=== PATIENT | female | born 1950 | race Caucasian/White ===

== ENCOUNTER 2017-12-29 14:17 | Emergency (ER) | payer MEDICARE, OTHER ==
[~2017-12-29] VITALS: Ht 170.2 cm; Wt 61.2 kg
[~2017-12-29 14:17] MED LIST: ACET325 PO; ARIP10 PO; ASCO500 PO; Acidophilus La100 GM PO; CALCAVITD PO; CHOL10002 PO; CLON1 PO; FISH1000 PO; FLUO10 PO; HYDACE5 PO; LEVSOD125 PO; LEVSOD25 PO; LEVSOD50 PO; LUTEIN20 MG PO; MECL12.5 PO; MERIBIN5 MG PO; MULVITMIND PO; Milk Thistle175 M1 PO; Neurontin 100100 MG PO; PARO20 PO; ROPI2 PO; TIZA4 PO; TIZANIDINE HCL4 MG PO; TOCO400 PO; TRAM50 PO; TRAZ100 PO; VICODIN 5-3001 EACH PO
[2017-12-29] MEDS ORDERED: Norco 5-325 Ta1 EACH PO (15:53)
== END 2017-12-29 16:05 | disposition home or self-care (01) ==
LOC: ER 14:17
DX: S39.012A Strain of muscle, fascia and tendon of lower back, initial encounter (principal); S29.012A Strain of muscle and tendon of back wall of thorax, initial encounter; X58.XXXA Exposure to other specified factors, initial encounter; E03.9 Hypothyroidism, unspecified; F41.9 Anxiety disorder, unspecified; F17.200 Nicotine dependence, unspecified, uncomplicated
CPT/HCPCS: 72040; 72070; 72100; 99283

== ENCOUNTER → 2018-09-15 | Outpatient (CLI) | payer MEDICARE, OTHER ==
[~2018-09-15] MED LIST changes: +Norco 5-325 Ta1 EACH PO
== END | disposition home or self-care (01) ==
LOC: LAB 17:28 → LAB SHORT 17:28
DX: R35.0 Frequency of micturition (principal); R30.0 Dysuria
CPT/HCPCS: 87077; 87086; 87186

== ENCOUNTER → 2018-10-14 | Outpatient (CLI) | payer MEDICARE, OTHER | LOC: LAB UCHC 15:43 → LAB SHORT 15:43 | DX: N39.0 Urinary tract infection, site not specified (principal) | CPT/HCPCS: 87077; 87086; 87186 ==

== ENCOUNTER → 2019-01-20 | Outpatient (CLI) | payer MEDICARE, OTHER ==
[~2019-01-20] MED LIST changes: +B-100 COMPLEX100 MG PO; +Caltrate Plus1 EACH PO; +Daily Multiple1 EACH PO; +LACT PO; +LUTEIN10 MG; +MAGNESIUM250 MG PO; +MOTION RELIEF25 MG PO; +Milk Thistle150 MG; +Omega 3 1,0001 EACH PO; +VITAMIN C500 M1 PO
== END | disposition home or self-care (01) ==
LOC: LAB 13:59 → LAB SHORT 13:59
DX: N39.0 Urinary tract infection, site not specified (principal)
CPT/HCPCS: 87086

== ENCOUNTER → 2019-03-01 | Outpatient (CLI) | payer MEDICARE, OTHER | LOC: LAB SHORT 15:14 → LAB UCHC 15:14 | DX: N39.0 Urinary tract infection, site not specified (principal) | CPT/HCPCS: 36415; 87086 ==

== ENCOUNTER 2020-08-24 10:02 | Day surgery (SDC) | payer MEDICARE, OTHER ==
[~2020-08-24] VITALS: Ht 170.2 cm; Wt 61.6 kg
[2020-08-24] MEDS ORDERED: DULO30 (10:41)
== END 2020-08-24 11:58 | disposition home or self-care (01) ==
LOC: ORSCSDS 10:02
PROVIDERS: Internal Medicine Gastroenterology
PROC: 0DBN8ZX Excision of Sigmoid Colon, Via Natural or Artificial Opening Endoscopic, Diagnostic (ICD-10-PCS; principal; 2020-08-24 11:15)
DX: R10.11 Right upper quadrant pain (principal); Z86.010 Personal history of colon polyps; K63.5 Polyp of colon; K64.4 Residual hemorrhoidal skin tags; K64.8 Other hemorrhoids; K57.30 Diverticulosis of large intestine without perforation or abscess without bleeding; Z86.19 Personal history of other infectious and parasitic diseases; Z86.73 Personal history of transient ischemic attack (TIA), and cerebral infarction without residual deficits; E78.5 Hyperlipidemia, unspecified; E03.9 Hypothyroidism, unspecified; F32.9 Major depressive disorder, single episode, unspecified; Z79.899 Other long term (current) drug therapy
CPT/HCPCS: 88305; J2704; J7120

== ENCOUNTER → 2021-04-30 | Outpatient (CLI) | payer MEDICARE, OTHER ==
[~2021-04-30] MED LIST changes: +DULO30
== END | disposition home or self-care (01) ==
LOC: LAB 14:44 → LAB SHORT 14:44
DX: R35.0 Frequency of micturition (principal)
CPT/HCPCS: 87086

== ENCOUNTER → 2021-06-17 | Outpatient (CLI) | payer MEDICARE, OTHER ==
[2021-06-19 09:11] LABS: HPV 16 Negative (Negative); HPV 18 Negative (Negative); HPV OTHER HR TYPES Negative (Negative)
== END ==
LOC: LAB SHORT 18:29 → LAB 18:29
PROVIDERS: Registered Nurse Community Health
DX: Z12.4 Encounter for screening for malignant neoplasm of cervix (principal)
CPT/HCPCS: 87624; G0123

== ENCOUNTER → 2023-03-09 | Outpatient (CLI) | payer MEDICARE, OTHER ==
[2023-03-09 18:33] LABS: BASOPHILS ABSOLUTE AUTO 0.05 K/mm3 (0.00-0.23); BASOPHILS PERCENT AUTO 1 % (0-2); EOSINOPHILS ABSOLUTE AUTO 0.09 K/mm3 (0.00-0.68); EOSINOPHILS PERCENT AUTO 1 % (0-6); Hematocrit 37.5 % (33.0-51.0); Hemoglobin 12.4 g/dL (11.5-16.0); IMMATURE GRAN ABSOLUTE AUTO 0.02 K/mm3 (0.00-0.10); IMMATURE GRAN PERCENT AUTO 0 % (0-1); LYMPHOCYTES ABSOLUTE AUTO 1.71 K/mm3 (0.84-5.20); LYMPHOCYTES PERCENT AUTO 19 % (21-46); MONOCYTES ABSOLUTE AUTO 0.66 K/mm3 (0.16-1.47); MONOCYTES PERCENT AUTO 7 % (4-13); Mean Corpuscular HGB 32.8 pg (26.0-34.0); Mean Corpuscular HGB Conc 33.1 g/dL (31.5-36.5); Mean Corpuscular Volume 99 fL (80-100); Mean Platelet Volume 12.8 fL (9.1-12.4); NEUTROPHILS ABSOLUTE AUTO 6.66 K/mm3 (1.96-9.15); NEUTROPHILS PERCENT AUTO 73 % (41-73); Platelet Count 198 K/mm3 (150-400); Red Blood Cell Count 3.78 M/mm3 (3.80-5.20); White Blood Cell Count 9.19 K/mm3 (4.00-11.30)
[2023-03-09 19:11] LABS: C-REACTIVE PROTEIN, EXT RANGE <0.290 mg/dL (0.000-0.300)
[2023-03-09 19:21] LABS: Alanine Aminotransfer (ALT/SGP 25 U/L (12-78); Albumin, Blood 3.8 g/dL (3.4-5.0); Albumin/Globulin Ratio 1.2 (0.8-1.8); Alk Phos 49 U/L (50-136); Anion Gap 2 mmol/L (6-16); Aspartate Aminotrans (AST/SGOT 28 U/L (12-37); Bilirubin, Total 0.2 mg/dL (0.1-1.0); Blood Urea Nitrogen 17 mg/dL (8-24); CO2, Blood 30 mmol/L (21-32); Calcium, Blood 9.4 mg/dL (8.5-10.1); Chloride, Blood 105 mmol/L (98-108); Free Thyroxine 1.01 ng/dL (0.70-1.60); Globulin, Blood 3.3 g/dL (2.2-4.0); Glomerular Filtration Rate 68 (60-); Glucose, Blood 82 mg/dL (70-99); Potassium, Blood 4.1 mmol/L (3.5-5.5); Sodium, Blood 137 mmol/L (136-145); Total Protein, Blood 7.1 g/dL (6.4-8.2)
[2023-03-12 16:09] LABS: HEPATITIS C QUANTITATION HCV Not Detected IU/mL (.)
== END | disposition home or self-care (01) ==
LOC: LAB 13:07 → LAB SHORT 13:07
PROVIDERS: Family Medicine
DX: Z11.59 Encounter for screening for other viral diseases (principal); N39.0 Urinary tract infection, site not specified; B18.2 Chronic viral hepatitis C; R63.4 Abnormal weight loss
CPT/HCPCS: 80053; 84439; 84443; 85025; 86140; 87077; 87086; 87186; 87522

== ENCOUNTER → 2023-06-23 | Outpatient (CLI) | payer MEDICARE, OTHER | LOC: LAB SHORT 14:45 → LAB 14:45 | DX: R30.0 Dysuria (principal) | CPT/HCPCS: 87086 ==

== ENCOUNTER 2024-03-22 09:13 | Day surgery (SDC) | payer MEDICARE, OTHER ==
[~2024-03-22] VITALS: Ht 172.7 cm; Wt 50.1 kg
[~2024-03-22 09:13] MED LIST changes: +Lactated Ringer's 1,000 ML IV ONE; +Lidocaine 2% 5 ML SDV ONE; +Lidocaine HCl/Pf 1% 5 ML VIAL ONE; +Methylene Blue 1% 100 MG/10 ML VIAL ONE; +propofoL 50 ML IV ONE
[2024-03-22] MEDS ORDERED: TRAM50 (10:36)
[2024-03-22] MEDS ORDERED: Lactated Ringer's 1,000 ML IV ONE ×2 (10:58→11:33)
[2024-03-22] MEDS ORDERED: propofoL 50 ML IV ONE (11:53)
[2024-03-22 12:41] VITALS: BP 130/83
== END 2024-03-22 17:18 | disposition home or self-care (01) ==
LOC: ORSCSDS 09:13
PROVIDERS: Internal Medicine Gastroenterology
PROC: 0DB98ZX Excision of Duodenum, Via Natural or Artificial Opening Endoscopic, Diagnostic (ICD-10-PCS; principal; 2024-03-22 11:00)
PROC: 0DJD8ZZ Inspection of Lower Intestinal Tract, Via Natural or Artificial Opening Endoscopic (ICD-10-PCS; principal; 2024-03-22 11:00)
PROC: 0DB68ZX Excision of Stomach, Via Natural or Artificial Opening Endoscopic, Diagnostic (ICD-10-PCS; principal; 2024-03-22 11:00)
DX: R63.4 Abnormal weight loss (principal); K29.50 Unspecified chronic gastritis without bleeding; K59.09 Other constipation; I10 Essential (primary) hypertension; Z86.010 Personal history of colon polyps; K57.30 Diverticulosis of large intestine without perforation or abscess without bleeding; K64.4 Residual hemorrhoidal skin tags
CPT/HCPCS: 88305; 88342; J2001; J2704; J7120; Q9968

== ENCOUNTER → 2024-08-24 | Outpatient (CLI) | payer MEDICARE, OTHER ==
[~2024-08-24] MED LIST changes: -Lactated Ringer's 1,000 ML IV ONE; -Lidocaine 2% 5 ML SDV ONE; -Lidocaine HCl/Pf 1% 5 ML VIAL ONE; -Methylene Blue 1% 100 MG/10 ML VIAL ONE; +TRAM50; -propofoL 50 ML IV ONE
== END ==
LOC: EDSTATUS 09:54 → LAB 16:55 → LAB SHORT 16:55
DX: N39.0 Urinary tract infection, site not specified (principal)
CPT/HCPCS: 87077; 87086; 87186

== ENCOUNTER → 2024-12-27 | Outpatient (CLI) | payer MEDICARE, OTHER | LOC: LAB SHORT 17:51 → LAB 17:51 | DX: N39.0 Urinary tract infection, site not specified (principal) | CPT/HCPCS: 87077; 87086; 87186 ==

== ENCOUNTER → 2025-03-28 | Outpatient (CLI) | payer MEDICARE, OTHER | LOC: LAB SHORT 14:20 → LAB 14:20 | DX: R30.0 Dysuria (principal) | CPT/HCPCS: 87077; 87086; 87186 ==

== ENCOUNTER 2025-05-17 09:26 | Day surgery (SDC) | payer MEDICARE, OTHER ==
[~2025-05-17] VITALS: Ht 172.7 cm; Wt 49.0 kg
[~2025-05-17 09:26] MED LIST changes: +Amlodipine Bes2.5 MG PO; +Balanced Salt Epinephrine Irrigation Solution 500 mL IR SCH; +GABA300 PO; +HYDR1TAB94 PO; +Moxifloxacin HCL 0.5 MG/0.1 ML 0.4MLSYR RIGHTEYE SCH; +Ondansetron 4 MG SoluTab MM PRN; +PHENYLEPHRINE\\TROPICAMIDE\\TETRACAINE OPHTHALMIC DILATING SOLN RIGHTEYE PRN; +Povidone-Iodine 450 DROP/30 ML Solution ONE; +Povidone-Iodine 450 DROP/30 ML Solution RIGHTEYE SCH; +Tetracaine HCl/Pf 0.5% Opth Soln 4 ml ONE
--- NOTE | 2025-05-17 09:44 | NUR ---
05/17/25 0944 Poonam Barfield PT REPORTS ANXIETY LEVEL AT 5/10 PRIOR TO ADMINISTRATION OF VALIUM 10MG PO @ 0942.
[2025-05-17] MEDS ORDERED: Mobic15 MG PO (09:48)
--- NOTE | 2025-05-17 11:03 | NUR ---
05/17/25 1103 Demi Daugherty VITALS AT 1102 BP: 142/86 P: 70 O2: 98% WITH 9 LITERS OF BLOW BY OXYGEN
[2025-05-17 11:20] VITALS: BP 135/99
--- NOTE | 2025-05-17 11:26 | NUR ---
05/17/25 1126 MELISSA VENEGAS PT STATES THAT SHE HAS PAIN 10/03. SHE DECLINED THE TYLENOL SINCE SHE BROUGHT A VICODIN WITH HER THAT SHE PLANS ON TAKING. DR SALAZAR IN TO [facility] WITH PT
== END 2025-05-17 11:13 | disposition home or self-care (01) ==
LOC: ORSCSDS 09:26
PROVIDERS: Student in an Organized Health Care Education/Training Program
PROC: 08RJ3JZ Replacement of Right Lens with Synthetic Substitute, Percutaneous Approach (ICD-10-PCS; principal; 2025-05-17 11:00)
DX: H25.813 Combined forms of age-related cataract, bilateral (principal); I10 Essential (primary) hypertension; E07.9 Disorder of thyroid, unspecified; Z79.899 Other long term (current) drug therapy; Z87.891 Personal history of nicotine dependence
CPT/HCPCS: A9270; V2632

== ENCOUNTER 2025-05-24 08:47 | Day surgery (SDC) | payer MEDICARE, OTHER ==
[~2025-05-24] VITALS: Ht 172.7 cm; Wt 51.2 kg
[~2025-05-24 08:47] MED LIST changes: +Mobic15 MG PO; +Moxifloxacin HCL 0.5 MG/0.1 ML 0.4MLSYR LEFTEYE SCH; -Moxifloxacin HCL 0.5 MG/0.1 ML 0.4MLSYR RIGHTEYE SCH; +PHENYLEPHRINE\\TROPICAMIDE\\TETRACAINE OPHTHALMIC DILATING SOLN LEFTEYE PRN; -PHENYLEPHRINE\\TROPICAMIDE\\TETRACAINE OPHTHALMIC DILATING SOLN RIGHTEYE PRN; +Povidone-Iodine 450 DROP/30 ML Solution LEFTEYE SCH; -Povidone-Iodine 450 DROP/30 ML Solution ONE; -Povidone-Iodine 450 DROP/30 ML Solution RIGHTEYE SCH; -Tetracaine HCl/Pf 0.5% Opth Soln 4 ml ONE
[2025-05-24] MEDS ORDERED: Tetracaine HCl 0.5% Opth Soln 15 ml LEFTEYE ONE (09:56)
--- NOTE | 2025-05-24 10:00 | NUR ---
05/24/25 1000 Shavonne Grimes N 146/89 99% 10L BLOW BY O2 [id number] 18
--- NOTE | 2025-05-24 10:15 | NUR ---
05/24/[address] IN TO SPEAK WITH PT
[2025-05-24 10:17] VITALS: BP 133/85
== END 2025-05-24 10:28 | disposition home or self-care (01) ==
LOC: ORSCSDS 08:47
PROVIDERS: Student in an Organized Health Care Education/Training Program
PROC: 08RK3JZ Replacement of Left Lens with Synthetic Substitute, Percutaneous Approach (ICD-10-PCS; principal; 2025-05-24 10:30)
DX: H25.812 Combined forms of age-related cataract, left eye (principal); Z96.1 Presence of intraocular lens; I10 Essential (primary) hypertension; E07.9 Disorder of thyroid, unspecified; Z79.899 Other long term (current) drug therapy; Z87.891 Personal history of nicotine dependence
CPT/HCPCS: A9270; V2632